=== PATIENT | female | born 1940 | race African-American/Black ===

== ENCOUNTER → 2019-01-23 | Outpatient (CLI) | payer MEDICARE ==
[~2019-01-23] MED LIST: ADULT LOW DOSE81 MG PO; AFLURIA 2045 MCG/010 IM; ALLEGRA ALLERG180 MG PO; ALLERGY10 M1 PO; ATORVASTATIN CA40 MG PO; BENADRYL25 MG PO; BRILINTA90 MG PO; CALCIUM 500 +1 EAC5 PO; CETIRIZINE HCL10 MG PO; CHLORTHALIDONE25 MG PO; CIPRO500 MG PO; CLARITIN10 MG PO; CO Q-10100 MG PO; COLACE100 MG PO; CORICIDIN HBP1 EAC2; DOXYCYCLINE 10100 MG PO; EFFIENT10 MG PO; EQL GLUCOSAMIN1 EAC3 PO; FLAX OIL1000 MG PO; FLONASE 0.05%50 MCG NASAL; FLUTICASONE PRO16 GM; HYDROCODON-ACE1 EAC2 PO; HYDROCODON-ACE1 EAC7 PO; HYDROCODON-ACE1 EAC8 PO; HYDROCODONE-AP1 EA11 PO; HYDROCODONE-AP1 EAC6 PO; IBUPROFEN 400400 M1 PO; IBUPROFEN 400400 M2 PO; K-DUR 20 MEQ T20 MEQ PO; KLOR-CON 10 ER10 MEQ PO; KLOR-CON 1010 MEQ PO; LASIX 20 MG TAB20 MG PO; LIPITOR20 MG PO; LIPITOR40 MG PO; LISINOPRIL-HCT1 EAC2 PO; LISINOPRIL10 MG PO; LISINOPRIL20 MG PO; LISINOPRIL30 MG PO; MEDROLDOSEPACK PO; METOPROLOL TART25 MG PO; MOBIC15 MG PO; NABUMETONE 500500 M1 PO; NASONEX17 GM NASAL; NEURONTIN 300300 M1 PO; NIACIN 100MG T100 M1 PO; NITROSTAT0.4 M1 SL; NITROSTAT0.4 MG SL; NORCO 5-325 TA1 EACH PO; NORVASC5 MG PO; OMEPRAZOLE 20 M20 M1 PO; PEPCID20 MG PO; PLAVIX 75 MG TA75 M1 PO; POTASSIUM20 PO; PREDNISONE 20 M20 MG PO; PROMETHAZINE/C118 ML PO; TOPROL XL50 MG PO; TYLENOL325 MG PO; VALIUM2 MG PO; VESICARE10 M1 PO; VITAMIN B-12100 MC1 PO; VITAMIN B-12500 MCG PO; VITAMIN B-6250 MG PO; VITAMIN D1000 UNI1 PO; VITAMIN D31000 UNI2 PO; VITAMIN D3400 UNIT PO; VITAMINC500 PO; VOLTAREN GEL 1100 G1; XANAX 0.5 MG0.5 M1 PO; ZETIA10 MG PO; [UNRECOGNIZED DRUG - OTHER] PO; [UNRECOGNIZED DRUG - REMARK]
--- NOTE | 2019-01-31 15:56 | CARDNUC ---
[place] [address] CARDIAC NUCLEAR IMAGING REPORT Name: GRETCHEN OZUNAEDDIE Room: [facility]#: [id number] Admission: 01/23/19 Attend Phys: Nalini Calhoun, Discharge: Date of : 44 Date of Service: 01/31/19 1555 Report #: [id number] THIS REPORT FOR: //name// APPROVED REPORT Imaging Protocol: Rest Tc-99m/Stress Tc-99m 1 day Study performed: 01/23/2019 12:15:00 Indication: ASHD, Chronic Diastolic HF Patient Location: Out-Patient Stress Tech: Isis Adams Stress Nurse: Larisa Shelley RN NM Tech:NICCI Phipps Ht: 5 ft 5 in Wt: 193 lbs BSA: 1.95 m2 BMI: 32.11 Medical History Medical History: ASHD, Chronic Diastolic HF, CAD s/p [place], CAD s/p stent, Hyperlipidemia, HTN, Snuff powder tobacco user. Medications: ASA 81 Mg, Lasix, Lisinopril, KCl, Atorvastatin, NTG. Allergies: Penicillin G, Simvastatin. Cardiac Risk Factors: Age, FHX of CAD, HTN, Hyperlipidemia, Snuff powder tobacco user, ASHD, Chronic Diastolic HF. Previous Cardiac Procedures: Myocardial infarction, PCI Pretest Chest Pain Characteristics: No chest pain Exercise History: Sedentary Physical Disabilities: Unstable gait, cane used to ambulate. Meds Held (24 hrs): NTG Resting Data Rest SPECT myocardial perfusion imaging was performed in supine position 30 minutes following the intravenous injection of 11.2 mCi of Tc-99m Sestamibi. Time of rest injection: 1300 Date: 01/23/2019 Time of rest imagin The images were gated to evaluate regional wall motion and calculate left ventricular ejection fraction. Administration Route: IV Administration Site: Right AC Pharmacologic Stress Pharmacologic stress test was performed by injecting Regadenoson 0.4 mg IV push over 10-15 seconds immediately [place] [address] CARDIAC NUCLEAR IMAGING REPORT Name: GRETCHEN OZUNAEDDIE Room: [facility]#: [id number] Admission: 01/23/19 Attend Phys: Nalini Calhoun, Discharge: Date of : 44 Date of Service: 01/31/19 1555 Report #: [id number] injection of 35.5 mCi of Tc-99m Sestamibi. Time of stress injection: 1440 Date: 01/23/2019 Time of stress imagin Administration Route: IV Administration Site: Right AC Gated Stress SPECT was performed 40 minutes after stress injection. The images were gated to evaluate regional wall motion and calculate left ventricular ejection fraction. Prone imaging was performed. Stress Test Details Stress Test: Pharmacologic stress testing performed using 0.4 mg of regadenoson per 5 mL given IV over 10 seconds. Reason for pharmacologic stress test: physical limitation, Cane used to ambulate, unsteady gait.. HR Max Heart Rate (APMHR): 143 bpm Resting HR: 73 bpm Target HR (85% APMHR): 121 bpm Max HR Achieved: 108 bpm % of APMHR: 75 Recovery HR: 99 bpm BP Resting BP: 128/100 mmHg Max BP: 154/99 mmHg Recovery BP: 182/105 mmHg ECG Resting ECG: Sinus Rhythm Stress ECG: Sinus Tachycardia ST Change: None Arrhythmia: None Recovery ECG: Sinus Rhythm Recovery ST Change: None Recovery Arrhythmia: None Clinical Reason for Termination: Completed protocol Stress Symptoms: Tightness in throat and chest. Exercise duration: 0 min 0 sec Exercise capacity: 1.00 METs The patient tolerated Lexiscan infusion without significant symptoms. Nurse Comments 79 year old female presented with cane for walking [place] [address] CARDIAC NUCLEAR IMAGING REPORT Name: LAITHMI AVELAR Room: [facility]#: [id number] Admission: 01/23/19 Attend Phys: Nalini Calhoun, Discharge: Date of : 44 Date of Service: 01/31/19 1555 Report #: [id number] Nuclear Medicine Stress Test. Patient tolerated sitting Lexiscan well. Recovery unremarkable. Patient escorted via wheelchair by staff to Nuclear Medicine for images. Patient stable with no complaints at that time. Patient did take her Blood Pressure medicine during recovery. Stress ECG Conclusion The baseline 12-lead EKG shows sinus rhythm without significant ST or T wave abnormality. EKGs obtained during and post Lexiscan infusion show no significant ST or T wave changes when compared to baseline. There were no stress-induced arrhythmias. Study Quality Study: Good Artifact: Mild Breast artifact Study Data At rest, the left ventricular ejection fraction was 66%.. Post stress, the left ventricular ejection was 70%.. TID = 0.90. Perfusion Very minimal photopenia in the mid to distal anterior wall that appears worse on rest than stress images. Wall motion in this region is normal. This suggests breast attenuation artifact. No other significant fixed or reversible defects were identified. Wall Motion Normal left ventricular wall motion. Nuclear Conclusion ECG Findings: negative for ischemia Clinical Findings: negative for ischemia Nuclear Findings: negative for ischemia Exercise Capacity: not assessed Left Ventricular Function: normal Risk Study: low Myocardial perfusion images show no defect to suggest infarct or left ventricular systolic function appears normal on gated studies. This is not a high risk study. <Conclusion> The baseline 12-lead EKG shows sinus rhythm without significant ST or T wave abnormality. EKGs obtained during [place] [address] CARDIAC NUCLEAR IMAGING REPORT Name: LAITHMI Room: [facility] DENISA Lewis#: [id number] Admission: 01/23/19 Attend Phys: Nalini Calhoun, Discharge: Date of : 44 Date of Service: 01/31/19 1555 Report #: [id number] show no significant ST or T wave changes when compared to baseline. There were no stress-induced arrhythmias. <ELECTRONICALLY SIGNED> By: Robert Wiley MD, FACC 01/31/19 1555 1555 1555 Robert Wiley MD, FACC /INF
== END ==
LOC: M.NUC 01-17 13:18
DX: I25.10 Atherosclerotic heart disease of native coronary artery without angina pectoris (principal); I11.0 Hypertensive heart disease with heart failure; I50.32 Chronic diastolic (congestive) heart failure